=== PATIENT | male | born 1985 | race Two or more races ===

== ENCOUNTER 2025-04-05 15:18 | Emergency (ER) | payer SELFPAY ==
[2025-04-05] VITALS (52 sets, daily range): BP systolic 79–100; BP diastolic 50–60; PULSE 64–95; RESP 13–22; TEMP 37.1–39.4; O2SAT 97–100; BMI 26.5
[2025-04-05 16:07] LABS: Basophils # (Auto) 0.0 Thou/mm3 (0.0-0.2); Basophils % (Auto) 1 % (0-2.5); Eosinophils # (Auto) 0.0 Thou/mm3 (0.0-0.5); Eosinophils % (Auto) 0 % (0-10); Hematocrit 33.4 % (41.0-53.0); Hemoglobin 12.1 g/dL (13.5-16.0); Immature Granulocytes Auto 0.01 Thou/mm3 (0.00-0.00); Lymphocytes # (Auto) 0.9 Thou/mm3 (1.0-4.8); Lymphocytes % (Auto) 18 % (10-50); Mean Corpuscular HGB Conc 36.2 g/dl (31.0-37.0); Mean Corpuscular Hemoglobin 30.8 pg (25.0-35.0); Mean Corpuscular Volume 85 fL (80-100); Monocytes # (Auto) 0.9 Thou/mm3 (0.0-0.8); Monocytes % (Auto) 20 % (0-12); Neutrophils # (Auto) 2.9 Thou/mm3 (1.8-7.7); Neutrophils % (Auto) 61 % (37-80); Nucleated Red Blood Cell # 0.00 Thou/mm3 (0.00-0.00); Nucleated Red Blood Cell % 0 /100 WBC (0); Platelet Count 177 Thou/mm3 (140-440); RDW Standard Deviation 36.3 fL (35.1-43.9); Red Blood Count 3.93 Miln/mm3 (4.50-5.90); White Blood Count 4.7 Thou/mm3 (3.8-10.6)
[2025-04-05 16:25] LABS: Alanine Aminotransferase 106 U/L (10-49); Albumin, Serum 4.8 gm/dL (3.5-5.0); Albumin/Globulin Ratio 1.8 (1.2-2.2); Alkaline Phosphatase 81 U/L (46-116); Anion Gap 12 (7-16); Aspartate Amino Transferase 103 U/L (0-34); BUN/Creatinine Ratio 9 Ratio (12-20); Bilirubin,Total 2.1 mg/dL (0.3-1.2); Blood Urea Nitrogen 11 mg/dL (9-23); Calcium 8.9 mg/dL (8.3-10.6); Calcium (Corrected) 8.9 mg/dL (8.5-10.1); Carbon Dioxide 26.5 mMol/L (20.0-31.0); Chloride 98 mMol/L (98-107); Creatinine (Component) 1.2 mg/dL (0.6-1.3); Estimated Creatinine Clearance 87.0 mL/min (>60); Globulin 2.7 gm/dL (2.3-3.5); Glucose 98 mg/dL (74-106); Osmolality,Calculated 271 (275-295); Potassium 4.4 mMol/L (3.4-5.1); Sodium 136 mMol/L (136-145); Total Protein 7.5 gm/dL (5.7-8.2); eGFR > 60 See Note
--- NOTE | 2025-04-05 16:33 | XR_ITS ---
Examination: AP chest single view TECHNIQUE: AP portable upright chest single view Date and time: April 05, 2025 1648 hours INDICATIONS: Sepsis alert, chest pain and shortness of breath today. FINDINGS: Normal heart size. The lungs are clear. The osseous structures are intact IMPRESSION: No active disease.
--- NOTE | 2025-04-05 16:33 | EKG_ITS ---
[facility] Test Date: 2025-04-05 Pat Name: ERIN CAMPOS Department: Room: - Gender: Male [employer]otive [employer]: : 1985 Requested By: Joshua Magallon Order Number: [id number] Reading MD: Joshua Magallon Measurements Intervals [place] Rate: 90 P: 49 WV: 138 QRS: 59 QRSD: 101 T: 43 QT: 359 QTc: 441 Interpretive Statements SINUS RHYTHM NONSPECIFIC ST & T-WAVE ABNORMALITY No previous ECG available for comparison /store/S0/[id number].pdf
--- NOTE | 2025-04-05 16:35 | EDNOTE_ITS ---
ED Back Injury Pain RME/HPI General Chief Complaint: Back Pain/Injury Stated Complaint: LOW BACK PAIN x 3 WKS, FEVER x @ DAYS Time Seen by Provider: 04/05/25 16:32 Source: patient Arrival date/time: 04/05/25 15:18 Limitations: no limitations RME / HPI RME / HPI Narrative: 39-year-old male who is here today with low back pain and fever. He has had some nausea and vomiting. Patient initially checked in and had a fever, at 1628, he was found to be hypotensive. This triggered a sepsis alert. Related Data Previous Rx's ?Medication ?Instructions ?Recorded benzonatate 100 mg capsule 100 mg PO TID PRN cough #14 caps 09/03/18 (Teshenry Corcoran) cephalexin 500 mg capsule 500 mg PO Q6H 7 days #28 cap s 04/05/25 Allergies Allergy/AdvReac Type Severity Reaction Status Date / Time No Known Allergies Allergy Verified 04/05/25 15:21 Review of Systems Review of Systems Systems Reviewed: All systems reviewed, normal except as documented ED Exam General Limitations: Present no limitations General appearance: Present alert and in no apparent distress Head Head exam: Present atraumatic Eye Eye exam: Present normal appearance, PERRL and EOMI ENT ENT exam: Present normal exam, normal oropharynx and mucous membranes moist Neck Neck exam: Present normal inspection, full ROM and trachea midline Chest Chest inspection: Present normal inspection and symmetric chest wall rise Respiratory Respiratory exam: Present normal lung sounds bilaterally Cardiovascular Cardiovascular exam: Present regular rate, normal rhythm and normal heart sounds Abdominal Exam Abdominal exam: Present soft; Absent distention, rebound or rigidity Extremities Exam Extremities exam: Present normal inspection and full ROM Back Exam Back exam: Present normal inspection and full ROM; Absent CVA tenderness (R) or CVA tenderness (L) Neurological Exam Neurological exam: Present alert and oriented X3 Psychiatric Psychiatric exam: Present normal affect and normal mood Skin Skin exam: Present warm, dry, intact and normal color Course Quality Measures none Orders Category Date Time Status Bedside COVID-19 Antigen Test NOW Care 04/05/25 17:23 Active Bedside Influenza A&B Antigen Test NOW Care 04/05/25 16:[address] Screening NOW Care 04/05/25 18:03 Active Active Directory Systems Administrator Q4H START 00 Care 04/05/25 16:33 Active Insert IV NOW Care 04/05/25 16:33 Active Strict Intake and Output Routine Care 04/05/25 16:[address] abdomen pelvis w con Stat Exams 04/05/25 18:03 Completed XR chest 1V SEPSIS PROTOCOL Stat Exams 04/05/25 16:33 Completed Blood Culture (Lab) Stat Lab 04/05/25 17:08 Received CBC Stat Lab 04/05/25 15:40 Completed Comprehensive Metabolic Panel Stat Lab 04/05/25 15:40 Completed Lactate (Lactic Acid) Stat Lab 04/05/25 16:59 Completed Partial Thromboplastin Time Stat Lab 04/05/25 16:59 Completed Procalcitonin Stat Lab 04/05/25 16:59 Completed Prothrombin Time with INR Stat Lab 04/05/25 16:59 Completed Urinalysis Stat Lab 04/05/25 21:31 Completed Urine Culture Stat Lab 04/05/25 16:33 Ordered Urine Culture Stat Lab 04/05/25 21:31 Received Acetaminophen Tab [Tylenol ES Tab] Med 04/05/25 18:21 Discontinued 1,000 mg PO X1 ONE Ibuprofen Tab [Motrin Tab] Med 04/05/25 16:33 Discontinued 600 mg PO X1 ONE Sodium Chloride 0.9% 1000 ml [Ns] 2,517 ml Med 04/05/25 16:47 Discontinued IV 2,517 mls/hr cefTRIAXone/D5w 1gm IV premix [Rocephin/D5w 1gm IV Med 04/05/25 16:48 Discontinued premix] 1 gm in 50 ml IV X1 EKG (RT) Stat RT 04/05/25 16:33 Draft Vital Signs Vital signs: Vital Signs Temperature 103.0 F H 04/05/25 16:28 Pulse Rate 95 04/05/25 16:28 Respiratory Rate 18 04/05/25 16:28 Blood Pressure 83/58 L 04/05/25 16:28 Pulse Oximetry (%) 100 04/05/25 16:28 Oxygen Delivery Method Room Air 04/05/25 16:28 Back Pain / Injury MDM Narrative MDM Narrative:: 39-year-old male came in today with low back pain. He was found to be febrile and his blood pressure was low. This triggered her sepsis alert. Patient workup was initiated. Patient had no leukocytosis or significant anemia. Lactic acid was unremarkable. He had no metabolic derangement. He had [address] abdomen pelvis was obtained which revealed cystitis pattern per radiology. Patient was given a dose of Keflex. He received weight based dosing of normal saline. He will be discharged with a prescription of cephalexin. Return precautions were discussed in detail. He agrees to return at anytime for any worsening changes as needed. Patient data External records reviewed:: None Clinical information provided by:: patient Social determinants that could affect healthcare access:: none Patient has the following chronic illnesses:: n/a How is presenting disease/condition affected by chronic disease/condition?: no chronic disease Evaluation data The following diagnostics were reviewed and interpreted by me:: EKG tracing(s) (Normal sinus rhythm at [address] changes or dynamic T waves.) Lab and/or radiology exams considered but not ordered:: n/a Interpretation Summary: UTI Medications / Prescriptions Medications or Prescriptions considered but not ordered:: n/a Medication administrations:: Medication Administration History Discontinued Medications Acetaminophen (Acetaminophen 500 Mg Tablet) 1,000 mg PO X1 ONE Stop: 04/05/25 18:22 Last Admin: 04/05/25 21:49 Dose: 1,000 mg Documented By: JERE Sodium Chloride (Ns) 2,517 mls @ 2,517 mls/hr 30 ml/kg infuse over 60 min (2517 ml) IV .Q1H ONE; Protocol Stop: 04/05/25 17:46 Last Infusion: 04/05/25 21:24 Dose: Infused Documented By: Admin: 04/05/25 17:11 Dose: 2,517 mls/hr Documented By: CHEO Ceftriaxone Sodium/Dextrose (Rocephin/D5w 1gm Iv Premix) 1 gm in 50 mls @ 100 mls/hr IV X1 ONE Stop: 04/05/25 17:17 Last Infusion: 04/05/25 18:14 Dose: Infused Documented By: Admin: 04/05/25 17:16 Dose: 100 mls/hr Documented By: CHEO Ibuprofen (Ibuprofen Tab 600 Mg Tablet) 600 mg PO X1 ONE Stop: 04/05/25 16:34 Last Admin: 04/05/25 16:39 Dose: 600 mg Documented By: CHEO See above Consultations Consultation(s) initiated? (list below): No Diagnosis Differential diagnosis back pain/injury: strain of lumbar region, renal colic, pyelonephritis and thoracic back pain Most likely diagnosis given after review of the tests above:: UTI Admission Indicated Admission indicated?: not indicated Admission Request Was there a request for admission?: No Disposition Plan Disposition Plan: Discharge Discharge Attestation Discharge Attestation: The patient and all family members were given an opportunity to ask questions and understood the discharge instructions. Discharge instructions specifically effects, indications for sooner follow up or return to the emergency department, and the expected course of current diagnosis. Patient condition: Stable Discharge Plan Plan Patient Disposition: HOME (Self Care) Prescriptions/Referrals Prescriptions/Med Rec: New cephalexin 500 mg capsule 500 mg PO Q6H 7 Days Qty: 28 0RF No Action benzonatate [Tessalon Perles] 100 mg capsule 100 mg PO TID PRN (Reason: cough) Qty: 14 0RF Referrals: Liliane Reed NP [Primary Care Provider] - In 1 week Problem List Clinical Impression: Acute UTI Patient/Caregiver Discharge Instructions Education Materials: ED Bladder Infection, Male (Adult) Additional Instructions: - Increase oral hydration. - Use the provided antibiotic as prescribed. - Please have a low threshold for returning here at anytime for any worsening or emergent changes. Print Language: Slovak Stand Alone Forms: Sadie Award Info., Patient Portal Info Letter
[2025-04-05] MEDS: IBUPROFEN TAB 600 MG TABLET PO (16:39)
[2025-04-05] MEDS: SODIUM CHLORIDE 0.9% 2517 ML IV (17:11)
[2025-04-05 17:16] LABS: Lactate (Lactic Acid) 1.3 mMol/L (0.4-2.0)
[2025-04-05] MEDS: cefTRIAXone/D5w 1gm IV premix 1 GM/50 ML BAG IV (17:16)
[2025-04-05 17:37] LABS: INR 1.1 (0.9-1.3); Partial Thromboplastin Time 33.6 Seconds (22.0-36.0); Prothrombin Time 12.3 Seconds (9.0-12.2)
--- NOTE | 2025-04-05 18:03 | XR_ITS ---
Examination: CT abdomen with intravenous contrast CT pelvis with intravenous contrast 2-D coronal reconstructions 2-D sagittal reconstructions Date and time of exam:April 05, 2025 2135 hours INDICATIONS: Lower back pain fever or flank pain sepsis 3 weeks. CTDI: vol (mGy) 9.34 DLP: (mGycm) 571. Technique: Multiple axial sections of the abdomen and pelvis have been obtained. 64 slice high-resolution scanner used. 3 mm axial sections have been obtained, post intravenous injection 60 cc Isovue 370. 2-D sagittal, coronal reconstructions obtained. Low dose protocols were performed. One or more of the following dose reduction techniques were used; automated exposure control, adjustment of the mA and/or KV according to patient size, use of iterative reconstruction technique. Findings: Fatty infiltration throughout the liver, no focal liver or splenic lesions Gallbladder not diagnostically visualized No pancreatic mass No renal or ureteral calculi Minimal left hydronephrosis Aorta normal size Appendix is not inflamed No bowel obstruction Normal prostate Marked thickening of the urinary bladder wall up to 11 mm The osseous structures are intact IMPRESSION: Minimal left hydronephrosis, likely urinary tract infection Marked thickening of the urinary bladder, cystitis pattern
[2025-04-05 18:54] LABS: Procalcitonin 0.38 ng/ml (0.0-0.49)
[2025-04-05 21:43] LABS: Collection Type, Urine Clean Catch
[2025-04-05] MEDS: ACETAMINOPHEN 500 MG TABLET 1000 MG PO (21:49)
[2025-04-05 21:57] LABS: Bilirubin,Urine Negative (Negative); Blood,Urine Negative (Negative); Clarity,Urine Turbid (Clear/Hazy); Color,Urine Yellow (Lt Yel-Yel); Glucose, Urine Negative (Negative); Ketones,Urine 2+ (Negative); Leukocyte Esterase,Urine Negative (Negative); Nitrite,Urine Negative (Negative); PH,Urine 6.5 (5.0-7.0); Protein,Urine Trace (Neg - Trace); RBC,Urine 7 /hpf (0-3); Specific Gravity,Urine 1.028 (1.001-1.035); Squamous Epithelial Cell,Urine < 1 /hpf (0-5); Urobilinogen,Urine 2.0 mg/dL (0.0-1.0); WBC,Urine 2 /hpf (0-5)
--- NOTE | 2025-04-06 00:22 | XR_ITS ---
Examination: Abdomen sonogram, Limited Date and time of exam: April 16, 2025 0127 hours INDICATION: Right upper abdominal pain beginning several weeks ago, status post cholecystectomy Technique: Real-time powell scale transabdominal sonographic images of the upper abdomen obtained. Findings: Absent gallbladder. Common bile ducts 0.9 cm no stones Pancreatic head 2.7 cm Liver 19.3 cm fatty infiltration Normal hepatopedal portal venous flow Patent IVC IMPRESSION: Absent gallbladder Common bile duct 0.9 cm no common bile duct stones Hepatomegaly with fatty infiltration.
[2025-04-06 00:46] VITALS: BP 96/57; PULSE 60; RESP 18; TEMP 36.7; O2SAT 99
[2025-04-06] MEDS: SODIUM CHLORIDE 0.9% 1000 ML 1,000 ML 999 ML IV (00:54)
[2025-04-06] MEDS: ONDANSETRON INJ 2 MG/ML INJ 2 ML 4 MG IVP (00:54)
[2025-04-06] MEDS: MORPHINE SULF INJ 10 MG/ML VIAL 4 MG IVP (00:55)
[2025-04-06 01:28] LABS: Sed Rate (ESR) 5 mm/hr (0-15)
[2025-04-06 01:43] LABS: Amylase 50 U/L (30-118); Bilirubin,Direct 0.4 mg/dL (0.0-0.3); C-Reactive Protein 1.6 mg/dL (0.0-0.9); Lipase 43 U/L (12-53); Magnesium 1.6 mg/dL (1.6-2.6)
--- NOTE | 2025-04-06 02:07 | PD.EDADDENDU ---
Emergency Room Addendum <Licha Oneil - Last Filed: 04/06/25 02:14> Addendum Narrative: I took over the care from previous shift physician, Joshua Nicholson PA-C, at 11pm on 04/05/25. See previous notes for complete H & P and ED course. I reviewed all diagnostic test results. My review of the US gallbladder report is My review of the CT abdomen pelvis report is minimal left hydronephrosis and marked thickening of the urinary bladder. Diagnoses include UTI. Treatment here from me included Morphine, Zofran, and NS. Based on my best medical judgment, made decision no further evaluation or treatment indicated at this time. Patient understands and agrees to the discharge instructions customized and printed, see below. Discharge instructions from Dr. Morel: 1. After extensive evaluation, only source of fever we have is the CT scan showing cystitis. 2. Take the antibiotic to kill the germs causing the infection.? Increase oral fluid to flush it out.? Maintain clear urine.? If dark or yellow, increase oral fluid. 3. Zofran for nausea/vomiting.? Tylenol 1000 mg alternating with ibuprofen 800 mg every 4 hours today and tomorrow scheduled. Then as needed for fever/pain. 4. See a private doctor on 04/08/2025 for recheck.? Ask to review all test results and official radiology reports, to make sure you receive all necessary follow-ups and monitoring, including elevated liver enzymes (liver damage/inflammation). 5. Seek immediate medical care with worsening, fever, or with any concerns. Jimmy Morel MD <Jimmy Morel MD - Last Filed: 04/06/25 02:18> Addendum Narrative: I took over the care from previous provider, Joshua Nicholson PA-C, at 11pm on 04/05/25. See previous notes for complete H & P and ED course. Patient presented with fever and right sided back pain. I reviewed all diagnostic test results. My interpretation of the EKG is sinus rhythm with no acute ST?T changes. My review of the US gallbladder report is no acute findings. My review of the CT abdomen pelvis report is minimal left hydronephrosis and marked thickening of the urinary bladder. Blood and urine test remarkable for total bili 2.1, AST 103, and ALT 106. Diagnoses include CT scan showing cystitis (no other source of fever) and elevated LFT. Treatment here included IV fluid, Zofran, ibuprofen, Tylenol, morphine, and Rocephin. Significant improvement noted. Recommended more outpatient management. Based on my best medical judgment, made decision no further evaluation or treatment indicated at this time. Patient understands and agrees to the discharge instructions customized and printed, see below. Discharge instructions from Dr. Morel: 1. After extensive evaluation, only source of fever we have is the CT scan showing cystitis. 2. Take the antibiotic to kill the germs causing the infection.? Increase oral fluid to flush it out.? Maintain clear urine.? If dark or yellow, increase oral fluid. 3. Zofran for nausea/vomiting.? Tylenol 1000 mg alternating with ibuprofen 800 mg every 4 hours today and tomorrow scheduled. Then as needed for fever/pain. 4. See a private doctor on 04/08/2025 for recheck.? Ask to review all test results and official radiology reports, to make sure you receive all necessary follow-ups and monitoring, including elevated liver enzymes (liver damage/inflammation). 5. Seek immediate medical care with worsening, fever, or with any concerns. iJmmy Morel MD
--- NOTE | 2025-04-06 02:37 | PRELIM_ITS ---
Right upper quadrant abdominal ultrasound. April 06, 2025 0127 hours Clinical history: Right upper quadrant tenderness. Technique: Grayscale and color flow images of the right upper quadrant are provided. Hepatic and portal veins were also imaged with color flow images. Comparison: No prior study is available for comparison. Findings: The liver is enlarged, measuring 19.3 cm, with smooth contour and increased echogenicity consistent with fatty infiltration (hepatic steatosis). There is no intrahepatic biliary ductal dilatation. The gallbladder is surgically absent (status post cholecystectomy). The common bile duct is normal in calibre, measuring 0.9 cm. The pancreas appears within normal limits, with the pancreatic head measuring 2.7 cm. Main portal vein demonstrates hepatopetal flow, and the IVC is patent. Impression: Hepatomegaly with fatty infiltration. Status post cholecystectomy No biliary ductal dilatation. Report Electronically Signed By: Luis Peace 04/06/2025 2:36:58 AM [EST]
[2025-04-06 02:44] VITALS: BP 90/56; PULSE 61; RESP 16; TEMP 36.6; O2SAT 99
== END 2025-04-06 02:44 | disposition home or self-care (01) ==
PROVIDERS: Family Medicine; Physician Assistant Medical; Emergency Provider Emergency Medicine; PCP Nurse Practitioner Family
DX: N39.0 Urinary tract infection, site not specified (principal); K76.0 Fatty (change of) liver, not elsewhere classified; R94.31 Abnormal electrocardiogram [ECG] [EKG]
CPT/HCPCS: 36415; 71045; 74177; 76705; 80053; 81001; 82150; 82248; 83605; 83690; 83735; 84145; 85025; 85610; 85652; 85730; 86140; 87040; 87086; 87400; 87811; 93005; 96361; 96365; 96375; 99284; A4649; J0696; J2270; J2405; J7030; Q9967; A9270